=== PATIENT | female | born 1985 | race Caucasian/White ===

== ENCOUNTER 2020-07-22 18:35 | Emergency (ER) | payer BC, SELFPAY ==
[~2020-07-22] VITALS: Ht 154.9 cm; Wt 83.9 kg
[2020-07-22 18:56] VITALS: BP_SYST 135
--- NOTE | 2020-07-22 19:00 | NUR ---
Pt brought by self, A&Ox4, pt presents to ER with bodyaches, headache, skin pink and warm, afebrile, will cont to monitor.
--- NOTE | 2020-07-22 19:10 | NUR ---
Dr Parks evaluating patient in the tent
--- NOTE | 2020-07-22 19:15 | NUR ---
PCR covid test sent to lab
[2020-07-22 19:32] VITALS: BP_SYST 135
--- NOTE | 2020-07-22 19:35 | NUR ---
Patient given written and verbal discharge instructions and verbalizes understanding. ER MD discussed with patient the results and treatment provided. Patient in stable condition. ID arm band removed. Rx of Motrin given. Patient educated on pain management and to follow up with PMD. Pain Scale 2/10 tolerable for pt Opportunity for questions provided and answered. Medication side effect fact sheet provided.
== END 2020-07-22 19:35 | disposition home or self-care (01) ==
LOC: SED 18:35
DX: U07.1 COVID-19 (principal)
CPT/HCPCS: 99283; U0003; C9803